=== PATIENT | male | born 1945 | race Caucasian/White ===

== ENCOUNTER 2023-09-27 16:16 | Inpatient (IN) | payer OTHER ==
[~2023-09-27] VITALS: Ht 170.2 cm; Wt 90.9 kg
[2023-09-27] MEDS ORDERED: LEVSOD100 PO (16:41)
[2023-09-27] MEDS ORDERED: METO25 PO (16:41)
[2023-09-27] MEDS ORDERED: TIMO.5OPSO RIGHTEYE (16:43)
[2023-09-27] MEDS ORDERED: LATA.005SO BOTHEYES (16:43)
[2023-09-27] MEDS ORDERED: 1/2 NS 250ml250 ML (16:45)
[2023-09-27] MEDS ORDERED: BRINZOLAMIDE15 ML RIGHTEYE (16:45)
[2023-09-27] MEDS ORDERED: LOSA25 PO (16:46)
[2023-09-27 16:56] LABS: BASOPHILS ABSOLUTE AUTO 0.05 K/mm3 (0.00-0.23); BASOPHILS PERCENT AUTO 0 % (0-2); EOSINOPHILS ABSOLUTE AUTO 0.16 K/mm3 (0.00-0.68); EOSINOPHILS PERCENT AUTO 1 % (0-6); Hematocrit 29.5 % (37.0-53.0); Hemoglobin 9.2 g/dL (13.5-17.5); IMMATURE GRAN ABSOLUTE AUTO 0.28 K/mm3 (0.00-0.10); IMMATURE GRAN PERCENT AUTO 2 % (0-1); LYMPHOCYTES ABSOLUTE AUTO 1.64 K/mm3 (0.84-5.20); LYMPHOCYTES PERCENT AUTO 13 % (21-46); MONOCYTES ABSOLUTE AUTO 1.01 K/mm3 (0.16-1.47); MONOCYTES PERCENT AUTO 8 % (4-13); Mean Corpuscular HGB 31.9 pg (26.0-34.0); Mean Corpuscular HGB Conc 31.2 g/dL (31.5-36.5); Mean Corpuscular Volume 102 fL (80-100); Mean Platelet Volume 12.1 fL (9.1-12.4); NEUTROPHILS ABSOLUTE AUTO 9.91 K/mm3 (1.96-9.15); NEUTROPHILS PERCENT AUTO 76 % (41-73); Platelet Count 312 K/mm3 (150-400); RDW Standard Deviation 48.9 fL (35.1-46.3); Red Blood Cell Count 2.88 M/mm3 (4.30-5.90); White Blood Cell Count 13.05 K/mm3 (4.00-11.30)
[2023-09-27 17:07] LABS: Bun/Creatinine Ratio 28.3 (12.0-20.0); Calcium, Blood 7.5 mg/dL (8.5-10.1); Creatinine, Blood 2.19 mg/dL (0.60-1.20); Magnesium, Blood 2.1 mg/dL (1.6-2.4); Potassium, Blood 5.4 mmol/L (3.5-5.5)
[2023-09-27 18:45] LABS: Base Excess Venous -10.4 mmol/L; Bicarbonate Venous 16.3 mmol/L (24.0-30.0); pH Blood Venous 7.27 (7.34-7.37)
[2023-09-27 20:15] LABS: Anti-Xa UFH, PHA Monitoring <0.10 IU/mL; International Normalized Ratio 1.07; Prothrombin Time Results 11.2 Sec (9.7-11.5)
[2023-09-27 22:50] LABS: Albumin, Blood 2.6 g/dL (3.4-5.0); Anion Gap 7 mmol/L (6-16); Blood Urea Nitrogen 65 mg/dL (8-24); Bun/Creatinine Ratio 26.4 (12.0-20.0); CO2, Blood 17 mmol/L (21-32); Calcium, Blood 8.3 mg/dL (8.5-10.1); Chloride, Blood 111 mmol/L (98-108); Creatinine, Blood 2.46 mg/dL (0.60-1.20); Glomerular Filtration Rate 26 (60-); Glucose, Blood 119 mg/dL (70-99); Phosphorus, Blood 3.6 mg/dL (2.5-4.9); Potassium, Blood 6.3 mmol/L (3.5-5.5); Sodium, Blood 135 mmol/L (136-145)
[2023-09-27 23:15] VITALS: BP 104/82
[2023-09-27 23:30] VITALS: BP 107/63
--- NOTE | 2023-09-27 23:35 | NUR ---
PROVIDER UPDATE: Dr Katz called an updated on pt status. She is up to 10L NC with desaturations down to 84%. RN and RT have attempted repositioning, suctioning, and pulmonary toileting. This RN instructed to no longer give pt morphine and to "not lie pt flat"
--- NOTE | 2023-09-27 23:43 | NUR ---
PROVIDER PHONE CALL: Dr Katz called back and instructed RT to place pt on airvo then obtain VBG one hour post.
[2023-09-27 23:45] VITALS: BP 112/77
[2023-09-27 23:48] LABS: Magnesium, Blood 2.4 mg/dL (1.6-2.4); Percent Saturation 18.1 % (20.0-50.0)
[2023-09-27 23:50] LABS: Phosphorus, Blood 3.4 mg/dL (2.5-4.9); Thyroid Stimulating Hormone 1.21 uIU/mL (0.360-4.800)
[2023-09-28] VITALS (30 sets, daily range): BP systolic 93–131; BP diastolic 55–89
[2023-09-28 01:00] LABS: Albumin, Blood 2.5 g/dL (3.4-5.0); Anion Gap 6 mmol/L (6-16); Blood Urea Nitrogen 62 mg/dL (8-24); Bun/Creatinine Ratio 27.8 (12.0-20.0); CO2, Blood 20 mmol/L (21-32); Calcium, Blood 8.2 mg/dL (8.5-10.1); Chloride, Blood 112 mmol/L (98-108); Creatinine, Blood 2.23 mg/dL (0.60-1.20); Glomerular Filtration Rate 29 (60-); Glucose, Blood 178 mg/dL (70-99); Potassium, Blood 4.7 mmol/L (3.5-5.5); Sodium, Blood 138 mmol/L (136-145)
--- NOTE | 2023-09-28 03:23 | NUR ---
ASSUMED CARE PT ARRIVED TO ROOM FROM ED AT 2230. PT A/O X4, ABLE TO ANSWER QUESTIONS APPROPRIATELY AND MAKE NEEDS KNOWN. PT DENIES CP AND SOB. PT ON RA, O2 SATS > 97%. CARDIAC MONITORING REFLECTS SINUS SARAVANAN, HR 50s. SBP 100s-110s. PT BLADDER SCANNED UPON ARRIVAL TO ROOM, 492 mL RECORDED. PT STATES HE STRAIGHT CATHS AT HOME PRN AND CAN FEEL WHEN HE NEEDS TO. Hx OF BPH. PT CURRENTLY ON BEDREST D/T BECOMING DIZZY AND LIGHT-HEADED WHEN TRYING TO RECREATIONAL SPORTS DIRECTOR ED. HEPARIN GTT INFUSING. PT NPO AFTER MIDNIGHT.
[2023-09-28 05:12] LABS: BASOPHILS ABSOLUTE AUTO 0.06 K/mm3 (0.00-0.23); BASOPHILS PERCENT AUTO 0 % (0-2); EOSINOPHILS ABSOLUTE AUTO 0.27 K/mm3 (0.00-0.68); EOSINOPHILS PERCENT AUTO 2 % (0-6); Hematocrit 29.7 % (37.0-53.0); Hemoglobin 9.5 g/dL (13.5-17.5); IMMATURE GRAN ABSOLUTE AUTO 0.26 K/mm3 (0.00-0.10); IMMATURE GRAN PERCENT AUTO 2 % (0-1); LYMPHOCYTES PERCENT AUTO 18 % (21-46); MONOCYTES ABSOLUTE AUTO 1.06 K/mm3 (0.16-1.47); MONOCYTES PERCENT AUTO 8 % (4-13); Mean Corpuscular HGB 32.2 pg (26.0-34.0); Mean Corpuscular Volume 101 fL (80-100); Mean Platelet Volume 11.8 fL (9.1-12.4); NEUTROPHILS ABSOLUTE AUTO 9.97 K/mm3 (1.96-9.15); NEUTROPHILS PERCENT AUTO 71 % (41-73); Platelet Count 323 K/mm3 (150-400); RDW Coefficient Variation 12.8 % (11.7-14.2); RDW Standard Deviation 47.3 fL (35.1-46.3); Red Blood Cell Count 2.95 M/mm3 (4.30-5.90); White Blood Cell Count 14.12 K/mm3 (4.00-11.30)
[2023-09-28 05:36] LABS: Albumin, Blood 2.5 g/dL (3.4-5.0); Albumin/Globulin Ratio 0.6 (0.8-1.8); Bilirubin, Total 0.4 mg/dL (0.1-1.0); Calcium, Blood 8.6 mg/dL (8.5-10.1); Creatinine, Blood 2.15 mg/dL (0.60-1.20); Magnesium, Blood 2.5 mg/dL (1.6-2.4); Phosphorus, Blood 3.3 mg/dL (2.5-4.9); Potassium, Blood 5.4 mmol/L (3.5-5.5); Total Protein, Blood 6.5 g/dL (6.4-8.2)
--- NOTE | 2023-09-28 05:59 | NUR ---
SHIFT SUMMARY PT REMAINS A/O X4. 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 PT HAS SLEPT FOR REST OF SHIFT ONCE SETTLED INTO ROOM AND MEDS GIVEN. PT DENIES CP AND SOB. PT ON RA, O2 SATS > 98%. CARDIAC MONITORING REFLECTS BRADYCARDIC SINUS ARRYTHMIA, HR 50s. SBP 100s-110s. HEPARIN GTT INFUSING THROUGH R PIV. LEFT PIV SL. PT STATED HE STRAIGHT CATHS AT HOME D/T BPH. PT WAS ABLE TO STATE WHEN HE FELT LIKE HE NEEDED TO BE STRAIGHT CATHED THIS SHIFT. PT REMAINS NPO. WILL CONTINUE TO MONITOR UNTIL CARE IS TRANSITIONED TO DAY SHIFT.
--- NOTE | 2023-09-28 07:26 | NUR ---
UPDATE: MAINSPRING FORMER AT BEDSIDE THIS AM, PLAN FOR ANGIOGRAM THIS AFTERNOON. NPO.
--- NOTE | 2023-09-28 12:28 | NUR ---
UPDATE: PT TO INVESTMENT BANKING ASSOCIATE @2028. SALINE LOCKED.
--- NOTE | 2023-09-28 14:14 | NUR ---
UPDATE: PT BACK FROM DETAIL SUPERVISOR @9550. TR BAND IN PLACE. NO SWELLING/BRUISING/OOZING NOTED ON SITE. NO STENTS PLACE.
--- NOTE | 2023-09-28 17:05 | NUR ---
SHIFT SUMMARY: PT REMAINS ALERT AND ORIENTED X4, ABLE TO FOLLOW COMMANDS AND MAKE NEEDS KNOWN. PEERLA. STRENGTH EQUAL BILATERALLY. COOPERATIVE WITH CARE. BP STABLE, HR SB-SR 50-60'S, AFEBRILE, SPO2 >98% ON ROOM AIR. RESPIRATIONS EVEN AND UNLABORED. PULSES STRONG AND EQUAL THROUGHOUT. PT POST ANGIOGRAM THIS AFTERNOON, NO STENTS PLACED. TR BAND RECOVERED, NO SIGNS OF BRUISING/SWELLING/OOZING NOTED. PT DENIES CP/PRESSURE. PT STRAIGHT CATH 7 TIMES THIS SHIFT, APPROX 2500 ML OF URINIARY OUTPUT. NO BM. PT ABLE TO TRANSFER VIA ONE PERSON ASSIST TO AND FROM CHAIR FOR LUNCH. TOLERATED WELL. PT NOW PCU STATUS. BED IN LOW, CALL LIGHT IN REACH, WILL REPORT TO ONCOMING RN.
[2023-09-29 00:09] VITALS: BP 111/68
[2023-09-29 03:05] LABS: Hematocrit 30.5 % (37.0-53.0); Hemoglobin 9.8 g/dL (13.5-17.5)
[2023-09-29 03:35] LABS: Albumin, Blood 2.6 g/dL (3.4-5.0); Anion Gap 8 mmol/L (6-16); Blood Urea Nitrogen 63 mg/dL (8-24); Bun/Creatinine Ratio 28.9 (12.0-20.0); CO2, Blood 21 mmol/L (21-32); Calcium, Blood 8.5 mg/dL (8.5-10.1); Chloride, Blood 108 mmol/L (98-108); Creatinine, Blood 2.18 mg/dL (0.60-1.20); Glomerular Filtration Rate 30 (60-); Glucose, Blood 131 mg/dL (70-99); Magnesium, Blood 2.1 mg/dL (1.6-2.4); Phosphorus, Blood 3.6 mg/dL (2.5-4.9); Potassium, Blood 4.5 mmol/L (3.5-5.5); Sodium, Blood 137 mmol/L (136-145)
[2023-09-29 04:16] VITALS: BP 105/73
--- NOTE | 2023-09-29 04:50 | NUR ---
shift summary this rn assumed care at 1900. vital signs stable. vitals have remained stable throughout the shift. tele sr with st elevation that alarm investigator is aware. medical manage is the plan deciding post anigo patient had yesterday. patient is alert and oriented x4. neuro is intact. patient reports no chest pain/pressure, shortness of breath, or pain. see shift assessment for further detials. patient straight cath himself twice this shift. patient has home straight cath supplies he is using due to it being easier to cath. left radial site is intact, scant amount of blood that ozzed that was there when this rn assumed care. no pain or swelling at site. no acute changes this shift. plan of care remains up to date. call light within reach and bed in lowest position.
[2023-09-29 09:41] VITALS: BP 130/99
--- NOTE | 2023-09-29 11:37 | NUR ---
ASSUMPTION OF CARE BEDSIDE SHIFT REPORT RECEIVED FROM NOC RN. PT RESTING IN BED, ALERT AND ORIENTED X4. PT ABLE TO ASNWER QUESTIONS, MAKE NEEDS KNOWN AND USES CALL LIGHT APPROPRIATELTY. HR 70'S SR WITH PAC's MAP >65. PT DENIES CP OR SOB. PT ON RA, OXYGEN SATURATION >95% PIV TO LAC AND RAC SL. PT STRAIGHT CATHS AT HOME INDEPENDENTLY. PT HAS STRAIGHT CATH'D TWICE THIS AM WITH HELP HOLDING URINAL. PT UP TO BEDSIDE TOILET TO VOID. BED IN LOWEST POSITION, CALL LIGHT WITHIN REACH. CARE CONTINUES.
[2023-09-29 15:28] VITALS: BP 119/99; BP 132/91
--- NOTE | 2023-09-29 15:30 | NUR ---
SHIFT SUMMARY PT RESTING IN BED, ALERT AND ORIENTED X4, HR 70-80'S NSR WITH PAC's, MAP >65. PT ON RA, OXYGEN SATURATION >95%. PIV TO RAC AND LAC SL. REPORT GIVEN TO RN ON SURGICAL FLOOR. PT TRANSFERED TO SURGICAL FLOOR VIA WHEELCHAIR. BELONGINGS TRANSFERED WITH PT. VS STABLE.
--- NOTE | 2023-09-29 15:41 | NUR ---
ARRIVAL TO UNIT PT ARRIVED TO UNIT FROM ICU VIA WHEELCHAIR. PT SITTING UP IN BED WATCHING TV, ABLE TO TRANSFER SELF FROM CHAIR TO BED. [id number], DENIES CP OR SOB. DENIES NEEDS AT THIS TIME.
[2023-09-29 17:15] VITALS: BP 103/74
--- NOTE | 2023-09-29 17:15 | NUR ---
tele notfied this rn of an st elevation of 2.3. pt denies any cp or shortness of breath. provider aware, plan is to continue observation at this time as patient is not a surgical candidate.
[2023-09-29 19:18] VITALS: BP 114/80
[2023-09-30 04:15] VITALS: BP 108/75
--- NOTE | 2023-09-30 04:57 | NUR ---
SHIFT SUMMARY VSS, TELE READS SR 73. PT SLEPT WELL T/O THE NIGHT. HAS DENIED ANY CHEST PAIN, PRESSURE, SOB, OR RADIATING PAIN T/O THE NIGHT. SELF CATHING WITH GOOD OUTPUT. PT TOLLERATING PO INTAKE W/O N/V. NO ACUTE EVENTS T/O THE NIGHT.
[2023-09-30 06:00] LABS: Hematocrit 29.4 % (37.0-53.0); Hemoglobin 9.5 g/dL (13.5-17.5)
[2023-09-30 06:32] LABS: Albumin, Blood 2.6 g/dL (3.4-5.0); Anion Gap 8 mmol/L (6-16); Blood Urea Nitrogen 56 mg/dL (8-24); Bun/Creatinine Ratio 26.5 (12.0-20.0); CO2, Blood 22 mmol/L (21-32); Calcium, Blood 8.6 mg/dL (8.5-10.1); Chloride, Blood 107 mmol/L (98-108); Creatinine, Blood 2.11 mg/dL (0.60-1.20); Ferritin, Serum 802 ng/mL (26-388); Glomerular Filtration Rate 31 (60-); Glucose, Blood 112 mg/dL (70-99); Iron Serum 45 ug/dL (65-175); Magnesium, Blood 1.8 mg/dL (1.6-2.4); Percent Saturation 25.4 % (20.0-50.0); Phosphorus, Blood 3.5 mg/dL (2.5-4.9); Potassium, Blood 4.3 mmol/L (3.5-5.5); Sodium, Blood 137 mmol/L (136-145); Total Iron Binding Capacity 177 ug/dL (250-450)
[2023-09-30 07:46] VITALS: BP 99/70
[2023-09-30 07:47] VITALS: BP 106/73
[2023-09-30] MEDS ORDERED: ASPI81CH PO (13:45)
[2023-09-30] MEDS ORDERED: ATOR80 PO (13:46)
[2023-09-30] MEDS ORDERED: CLOP75 PO (13:46)
[2023-09-30] MEDS ORDERED: Bumetanide2 MG PO (13:46)
--- NOTE | 2023-09-30 14:50 | NUR ---
DISCHARGE PT LEFT VIA WHEELCHAIR. WALKER DELIVERED TO PATIENT PRIOR TO DISCHARGE. PT HAS BEEN AMBULATING WELL IN ROOM USING WALKER. CONTINUES TO STRAIGHT CATH SELF. PT HAS ALL BELONGINGS WITH SELF. PT CONTINUES TO DENY CHEST PAIN DURING SHIFT, NO SHORTNESS OF BREATH. TOLERATING DIET WELL, NO PAIN. NO FURTHER QUESTIONS, HE PLANS TO FOLLOW UP WITH PCP ON DISCHARGE.
== END 2023-09-30 14:51 | disposition home or self-care (01) | DRG 280 ==
LOC: ER 16:16 → PCU 18:35 → ER 18:35 → ERHOLD 19:30 → SURS 19:30 → ICUE 19:30 → ER 19:55 → ICUE 19:55 → SURS 09-29 15:23
PROVIDERS: Internal Medicine Nephrology; Nurse Practitioner Acute Care; Student in an Organized Health Care Education/Training Program; ADMIT Internal Medicine
PROC: B2111ZZ Fluoroscopy of Multiple Coronary Arteries using Low Osmolar Contrast (ICD-10-PCS; principal; 2023-09-28)
PROC: 4A023N7 Measurement of Cardiac Sampling and Pressure, Left Heart, Percutaneous Approach (ICD-10-PCS; 2023-09-28)
DX: I21.09 ST elevation (STEMI) myocardial infarction involving other coronary artery of anterior wall (principal); I50.21 Acute systolic (congestive) heart failure; E87.20 Acidosis, unspecified; N17.9 Acute kidney failure, unspecified; N13.8 Other obstructive and reflux uropathy; I13.0 Hypertensive heart and chronic kidney disease with heart failure and stage 1 through stage 4 chronic kidney disease, or unspecified chronic kidney disease; Z66 Do not resuscitate; Z51.5 Encounter for palliative care; I95.9 Hypotension, unspecified; I49.1 Atrial premature depolarization; D53.9 Nutritional anemia, unspecified; E03.9 Hypothyroidism, unspecified; I25.10 Atherosclerotic heart disease of native coronary artery without angina pectoris; N18.30 Chronic kidney disease, stage 3 unspecified; E87.5 Hyperkalemia; N40.1 Benign prostatic hyperplasia with lower urinary tract symptoms; H40.9 Unspecified glaucoma; I35.0 Nonrheumatic aortic (valve) stenosis; R39.14 Feeling of incomplete bladder emptying; I71.21 Aneurysm of the ascending aorta, without rupture; Z87.891 Personal history of nicotine dependence; Z79.890 Hormone replacement therapy; Z28.21 Immunization not carried out because of patient refusal
CPT/HCPCS: 36415; 71045; 76770; 76937; 80048; 80053; 80069; 82330; 82550; 82728; 82803; 82947; 83036; 83540; 83550; 83605; 83735; 84100; 84443; 84484; 85014; 85018; 85025; 85520; 85610; 85730; 93005; 93010; 93458; 96374; 99152; 99153; 99285-25; A9270; C1769; C1894; C8929; J0881; J1644; J1815; J2250; J3010; J7030; J7050; Q9957; Q9967

== ENCOUNTER 2023-10-17 19:13 | Observation (INO) | payer OTHER, MEDICARE ==
[~2023-10-17] VITALS: Ht 170.2 cm; Wt 90.7 kg
[~2023-10-17 19:13] MED LIST: 1/2 NS 250ml250 ML; ASPI81CH PO; ATOR80 PO; BRINZOLAMIDE15 ML RIGHTEYE; Bumetanide2 MG PO; CLOP75 PO; LATA.005SO BOTHEYES; LEVSOD100 PO; LOSA25 PO; METO25 PO; TIMO.5OPSO RIGHTEYE
[2023-10-17 19:56] LABS: BASOPHILS ABSOLUTE AUTO 0.07 K/mm3 (0.00-0.23); BASOPHILS PERCENT AUTO 1 % (0-2); EOSINOPHILS ABSOLUTE AUTO 0.41 K/mm3 (0.00-0.68); EOSINOPHILS PERCENT AUTO 3 % (0-6); Hematocrit 34.3 % (37.0-53.0); Hemoglobin 11.5 g/dL (13.5-17.5); IMMATURE GRAN ABSOLUTE AUTO 0.09 K/mm3 (0.00-0.10); IMMATURE GRAN PERCENT AUTO 1 % (0-1); LYMPHOCYTES ABSOLUTE AUTO 1.65 K/mm3 (0.84-5.20); LYMPHOCYTES PERCENT AUTO 11 % (21-46); MONOCYTES ABSOLUTE AUTO 1.36 K/mm3 (0.16-1.47); MONOCYTES PERCENT AUTO 9 % (4-13); Mean Corpuscular HGB 31.9 pg (26.0-34.0); Mean Corpuscular HGB Conc 33.5 g/dL (31.5-36.5); Mean Corpuscular Volume 95 fL (80-100); Mean Platelet Volume 12.1 fL (9.1-12.4); NEUTROPHILS ABSOLUTE AUTO 11.17 K/mm3 (1.96-9.15); NEUTROPHILS PERCENT AUTO 76 % (41-73); Platelet Count 298 K/mm3 (150-400); RDW Coefficient Variation 12.3 % (11.7-14.2); RDW Standard Deviation 42.5 fL (35.1-46.3); Red Blood Cell Count 3.61 M/mm3 (4.30-5.90); White Blood Cell Count 14.75 K/mm3 (4.00-11.30)
[2023-10-17 20:15] LABS: Albumin, Blood 3.3 g/dL (3.4-5.0); Albumin/Globulin Ratio 0.7 (0.8-1.8); Bilirubin, Total 0.6 mg/dL (0.1-1.0); Bun/Creatinine Ratio 29.3 (12.0-20.0); Calcium, Blood 9.3 mg/dL (8.5-10.1); Creatinine, Blood 2.42 mg/dL (0.60-1.20); Globulin, Blood 4.8 g/dL (2.2-4.0); Potassium, Blood 3.2 mmol/L (3.5-5.5); Total Protein, Blood 8.1 g/dL (6.4-8.2)
[2023-10-18] MEDS ORDERED: METOPROLOL TART25 MG PO (00:20)
[2023-10-18] MEDS ORDERED: LOSA50 PO (00:20)
[2023-10-18 01:06] VITALS: BP 100/70
[2023-10-18 04:59] VITALS: BP 100/71
--- NOTE | 2023-10-18 05:01 | NUR ---
SHIFT SUMMARY ARRIVED FROM THE ED AT AROUND 0050. HE WAS ALERT AND FULLY ORIENTED AND COOPERATIVE WITH CARE. PT HAD A FALL AT HOME AFTER EPISODE OF SYNCOPE, PT COMPLAINS OF ABD PAIN (UNRELATED TO FALL, BEGINNING 6 DAYS AGO) THAT IS IMPROVING, WELL PAIN IN RIBS AND HEAD FROM FALL. PT WAS A HOSPICE PATIENT D/T CARDIAC HX, BUT CANCELED HOSPICE SERVICES YESTERDAY. PT'S OPTHALMIC DRUGS ARRIVED TO THE UNIT IN THE EARLY AM, ORDERS RECIEVED FROM DR. ARCHULETA REGARDING ADMINISTRATION. NO ACUTE EVENTS OR NOTABLE CHANGES IN CONDITION. PT RESTING IN BED AT A LOW POSITION WITH THE CALLL LIGHT IN REACH.
[2023-10-18 07:13] VITALS: BP 117/72
[2023-10-18] MEDS ORDERED: COLCHICINE0.6 MG PO (12:12)
[2023-10-18] MEDS ORDERED: LEVO750 PO (12:13)
[2023-10-18] MEDS ORDERED: OXYC5 PO (12:21)
--- NOTE | 2023-10-18 13:34 | NUR ---
PT DISCHARGED THE PT VERBALIZED UNDERSTANDING OF THE DC INSTRUCTIONS. THE PTS PRESCRIPTION WAS FAXED TO [facility] HE REQUESTED. THE PT WAS TRANSFERED VIA WHEELCHAIR ACCOMPANIED BY THE HOSE TURNER. PT WAS GIVEN AN ORAL ANTIBIOTIC PRIOR TO DC INSTRUCTED
== END 2023-10-18 13:03 | disposition hospice, home (50) ==
LOC: ER 19:13 → MEDS 19:14 → ENPENDDIS 10-18 11:46 → MEDS 10-18 13:03
PROVIDERS: Student in an Organized Health Care Education/Training Program; ADMIT Internal Medicine
DX: K65.4 Sclerosing mesenteritis (principal); I71.21 Aneurysm of the ascending aorta, without rupture; E03.9 Hypothyroidism, unspecified; I25.10 Atherosclerotic heart disease of native coronary artery without angina pectoris; I13.0 Hypertensive heart and chronic kidney disease with heart failure and stage 1 through stage 4 chronic kidney disease, or unspecified chronic kidney disease; N18.30 Chronic kidney disease, stage 3 unspecified; I50.22 Chronic systolic (congestive) heart failure; Z66 Do not resuscitate; Z79.82 Long term (current) use of aspirin; Z79.899 Other long term (current) drug therapy; Z51.5 Encounter for palliative care; W18.30XA Fall on same level, unspecified, initial encounter
CPT/HCPCS: 51798; 70450; 71101; 74176; 80053; 83605; 85025; 93005; 93010; 96374; 96375; 99285-25; A9270; G0378; J2270; J3010; J7030

== ENCOUNTER → 2023-10-29 | Outpatient (CLI) | payer MEDICARE, OTHER ==
[~2023-10-29] MED LIST changes: +COLCHICINE0.6 MG PO; +LEVO750 PO; +LOSA50 PO; +METOPROLOL TART25 MG PO; +OXYC5 PO
[2023-10-29 21:43] LABS: Protein, Urine Quantitative <5.0 mg/dL (0.0-11.9)
== END | disposition home or self-care (01) ==
LOC: LAB SHORT 11:00 → LAB 11:00
PROVIDERS: Internal Medicine Nephrology
DX: N18.30 Chronic kidney disease, stage 3 unspecified (principal); D63.1 Anemia in chronic kidney disease; N25.81 Secondary hyperparathyroidism of renal origin; E55.9 Vitamin D deficiency, unspecified; E78.00 Pure hypercholesterolemia, unspecified; R76.9 Abnormal immunological finding in serum, unspecified; R94.5 Abnormal results of liver function studies; R94.6 Abnormal results of thyroid function studies; D51.8 Other vitamin B12 deficiency anemias; D52.8 Other folate deficiency anemias; D50.9 Iron deficiency anemia, unspecified
CPT/HCPCS: 81050; 82043; 82570; 84156